=== PATIENT | male | born 1975 | race African-American/Black ===

== ENCOUNTER 2016-11-04 18:05 | Emergency (ER) | payer OTHER ==
[2016-11-04 18:13] VITALS: BP 138/85; PULSE 80; TEMP 98.6; BMI 33.5
[2016-11-04] MEDS ORDERED: KETOROLAC TROMETHAMINE 60 MG/2 ML VIAL ONE (19:37)
[2016-11-04] MEDS ORDERED: KETOROLAC TROMETHAMINE 60 MG/2 ML VIAL IM ONE (19:42)
--- NOTE | 2016-11-04 19:49 | PDOC ---
History of Present Illness - General Chief Complaint: Pain Stated Complaint: INJURY Time Seen by Provider: 11/04/16 19:23 History Source: Patient Exam Limitations: No Limitations - History of Present Illness Initial Comments: 11/04/16 19:43 CHIEF COMPLAINT: Right calf pain HISTORY OF PRESENT ILLNESS: Patient is a 40-year-old male, no significant medical history currently on no medication presents for evaluation of right calf pain patient states he was playing ball went to make a quick turn and felt a pop to right calf. Patient is ambulatory with a limp good flexion extension of foot, no swelling, no bruising, no deformity. 11/04/16 22:46 Occurred: reports: this afternoon Severity: Yes: moderate Lower Extremity Pain Location: right: other Method of Injury: Yes: twisted Modifying Factors: improves with: None Lower Ext. Injury Location - Specific Injury Location Legs: right: pain (pain to right calf, tenderness to same) Extremity Pain Location - Extremity Pain Location Extremity Pain Locations: right: other (calf) Past History - Past Medical History Allergies/Adverse Reactions: Allergies Allergy/AdvReac Type Severity Reaction Status Date / Time No Known Allergies Allergy Unverified 11/04/16 18:13 Home Medications: Ambulatory Orders Ibuprofen [Motrin -] 600 mg PO QID #28 tablet 11/04/16 Other medical history: denies - Suicide/Smoking/Psychosocial Hx Smoking History: Never smoked Have you smoked in the past 12 months: No Information on smoking cessation initiated: No Hx Alcohol Use: No Drug/Substance Use Hx: No Substance Use Type: None Review of Systems - Review of Systems Respiratory: No: Symptoms reported Cardiac (ROS): No: Symptoms Reported Musculoskeletal: Yes: Other (right calf pain, no step-off, no deformity, no swelling) Integumentary: No: Bruising, Erythema Neurological: No: Symptoms reported, Paresthesia, Tingling, Tremors, Weakness, Unsteady Gait, Ataxia, Dizziness All Other Systems: Reviewed and Negative *Physical Exam - Vital Signs Last Vital Signs Temp Pulse Resp BP Pulse Ox 98.6 F 80 18 138/85 99 11/04/16 18:11 11/04/16 18:11 11/04/16 18:11 11/04/16 18:11 11/04/16 18:11 - Physical Exam General Appearance: Yes: Appropriately Dressed. No: Apparent Distress Respiratory/Chest: positive: Lungs Clear, Normal Breath Sounds Cardiovascular: positive: Regular Rhythm, Regular Rate Musculoskeletal: positive: Other (muscle pain to right posterior calf). negative: Decreased Range of Motion Extremity: positive: Tender (tender right calf), Calf Tenderness. negative: Pedal Edema, Swelling, Erythema, Inflammation Integumentary: positive: Normal Color, Dry. 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 There is no deformity, patient able to flex and extend foot no clinical evidence of Achilles injury. Pain to gastronemeus muscle and have applied Puma wrap to area, Toradol 60 mg and have made Patient nonweightbearing with crutches. 11/04/16 22:46 Patient states relief of pain after Toradol, just states it is mildly sore. Patient given crutches will remain nonweightbearing follow-up with orthopedics if pain persists in several days and does not seem to be resolving. I discussed the physical exam findings, ancillary test results and final diagnoses with the patient. I answered all of the patient's questions. The patient was satisfied with the care received and felt comfortable with the discharge plan and treatment plan. The patient will call []within [] hours to arrange follow-up and will return to the Emergency Department with any new, persistant or worsening symptoms. *DC/Admit/Observation/Transfer Diagnosis at time of Disposition: Strain of calf muscle Qualifiers: Encounter type: initial encounter Laterality: right Qualified Code(s): S86.811A - Strain of other muscle(s) and tendon(s) at lower leg level, right leg , initial encounter - Discharge Dispostion Disposition: HOME Condition at time of disposition: Good Admit: No - Prescriptions Prescriptions: Ibuprofen [Motrin -] 600 mg PO QID #28 tablet - Referrals Referrals: Chung Zendejas MD [Staff Physician] - - Patient Instructions Printed Discharge Instructions: Calf Muscle Strain Additional Instructions: Recommend follow-up with orthopedics in one week if pain persists please try to be nonweightbearing to right leg, anti-inflammatories for pain. Keep area wrapped to give support to muscle - Post Discharge Activity Forms/Work/School Notes: Back to Work
== END 2016-11-04 20:36 | disposition home or self-care (01) ==
LOC: JERFT 18:05
PROC: 3E0233Z Introduction of Anti-inflammatory into Muscle, Percutaneous Approach (ICD-10-PCS; principal; 2016-11-04)
DX: S86.111A Strain of other muscle(s) and tendon(s) of posterior muscle group at lower leg level, right leg, initial encounter (principal); X50.1XXA Overexertion from prolonged static or awkward postures, initial encounter; Y93.69 Activity, other involving other sports and athletics played as a team or group; Y92.39 Other specified sports and athletic area as the place of occurrence of the external cause; Y99.8 Other external cause status
CPT/HCPCS: 96372; 99281-25